=== PATIENT | female | born 1975 | race Caucasian/White ===

== ENCOUNTER 2018-07-31 17:52 | Emergency (ER) | payer MEDICAID ==
[~2018-07-31] VITALS: Ht 148.6 cm; Wt 54.5 kg
[2018-07-31 18:07] VITALS: Ht 148.6 cm; Wt 54.5 kg
[2018-07-31] MEDS ORDERED: LOVASTATIN20 MG PO (18:09)
[2018-07-31 18:25] LABS: BASOPHILS 0.1 % (0-2); EOSINOPHILS 1.3 % (0-7); HEMATOCRIT 42.2 % (36.0-48.0); HEMOGLOBIN 14.8 g/dL (12-16); IMMATURE GRANULOCYTES 0.2 % (0-5); LYMPHOCYTES 26.5 % (15-50); MCH 32.8 pg (26.0-34.0); MCHC 35.1 g/dL (31.0-37.0); MCV 93.6 fL (80.0-100.0); MEAN PLATELET VOLUME 10.6 fL (7.4-10.4); MONOCYTES 5.7 % (2-11); NEUTROPHILS 66.2 % (40-80); PLATELET COUNT 198 10x3/uL (130-400); RBC 4.51 10x6/uL (4.00-5.40); RDW 12.8 % (11.5-14.5); WBC 11.3 10x3/uL (4.8-10.8)
[2018-07-31 18:31] LABS: INR 0.97 (0.85-1.17); PROTIME 12.4 SECONDS (11.6-15.0)
[2018-07-31 18:32] LABS: APTT 27.8 SECONDS (22.8-39.4)
[2018-07-31 18:37] LABS: ALBUMIN 3.4 g/dL (3.4-5.0); ALKALINE PHOSPHATASE 63 U/L (46-116); ALT (SGPT) 9 U/L (10-68); BILIRUBIN - TOTAL 0.26 mg/dL (0.2-1.3); CALC OSMOLALITY 279 mosm/kg (275-300); CALCIUM 8.5 mg/dL (8.5-10.1); CARBON DIOXIDE 21.2 mmol/L (21.0-32.0); CHLORIDE - SERUM 106 mmol/L (98-107); CREATININE - SERUM 0.9 mg/dL (0.6-1.3); GLUCOSE 104 mg/dL (74-106); POTASSIUM - SERUM 3.6 mmol/L (3.5-5.1); PROTEIN - SERUM 7.1 g/dL (6.4-8.2); SODIUM 139 mmol/L (136-145); UREA NITROGEN 17 mg/dL (7-18); eGFR NON AFRICAN AMERICAN 73 mL/min (90-120)
[2018-07-31 18:48] LABS: CKMB 0.2 U/L (0.0-3.6); CREATINE KINASE 57 UL (21-215); MAGNESIUM - SERUM 2.2 mg/dL (1.8-2.4)
[2018-07-31 18:51] LABS: TROPONIN-I < 0.017 ng/mL (0.000-0.060)
[2018-07-31] MEDS ORDERED: METOPROLOL TART25 MG PO (19:31)
[2018-07-31 20:25] VITALS: BP 104/63
== END 2018-07-31 20:15 | disposition home or self-care (01) ==
LOC: D.ER 17:52
PROVIDERS: Family Medicine
DX: I47.1 Supraventricular tachycardia (principal)

== ENCOUNTER 2018-08-18 08:20 | Emergency (ER) | payer MEDICAID ==
[~2018-08-18 08:20] MED LIST: LOVASTATIN20 MG PO; METOPROLOL TART25 MG PO
[2018-08-18 08:31] VITALS: BMI 24.7
[2018-08-18] MEDS ORDERED: RYTHMOL 225 MG225 MG PO (08:48)
[2018-08-18 09:04] LABS: BASOPHILS 0.1 % (0-2); EOSINOPHILS 1.9 % (0-7); HEMATOCRIT 40.9 % (36.0-48.0); HEMOGLOBIN 14.4 g/dL (12-16); IMMATURE GRANULOCYTES 0.1 % (0-5); LYMPHOCYTES 37.6 % (15-50); MCH 33.2 pg (26.0-34.0); MCHC 35.2 g/dL (31.0-37.0); MCV 94.2 fL (80.0-100.0); MEAN PLATELET VOLUME 10.5 fL (7.4-10.4); MONOCYTES 7.2 % (2-11); NEUTROPHILS 53.1 % (40-80); PLATELET COUNT 186 10x3/uL (130-400); RBC 4.34 10x6/uL (4.00-5.40); RDW 13.2 % (11.5-14.5); WBC 7.4 10x3/uL (4.8-10.8)
[2018-08-18 09:25] LABS: APTT 28.4 SECONDS (22.8-39.4); PROTIME 12.7 SECONDS (11.6-15.0)
[2018-08-18 09:28] LABS: ALBUMIN 3.4 g/dL (3.4-5.0); ALKALINE PHOSPHATASE 60 U/L (46-116); ALT (SGPT) 9 U/L (10-68); BILIRUBIN - TOTAL 0.42 mg/dL (0.2-1.3); CALC OSMOLALITY 277 mosm/kg (275-300); CARBON DIOXIDE 24.9 mmol/L (21.0-32.0); CHLORIDE - SERUM 105 mmol/L (98-107); CREATININE - SERUM 0.8 mg/dL (0.6-1.3); GLUCOSE 90 mg/dL (74-106); SODIUM 139 mmol/L (136-145); UREA NITROGEN 12 mg/dL (7-18); eGFR NON AFRICAN AMERICAN 84 mL/min (90-120)
[2018-08-18 09:30] LABS: POTASSIUM - SERUM 4.3 mmol/L (3.5-5.1)
[2018-08-18 09:32] LABS: CKMB 0.8 U/L (0.0-3.6); CREATINE KINASE 74 UL (21-215); MAGNESIUM - SERUM 2.4 mg/dL (1.8-2.4); TROPONIN-I < 0.017 ng/mL (0.000-0.060)
[2018-08-18] MEDS ORDERED: TENORMIN25 MG PO (10:05)
[2018-08-18 10:15] VITALS: BP 132/80
== END 2018-08-18 10:15 | disposition home or self-care (01) ==
LOC: D.ER 08:20
PROVIDERS: Emergency Medicine
DX: R51 Headache (principal); I10 Essential (primary) hypertension

== ENCOUNTER 2018-09-17 01:27 | Emergency (ER) | payer MEDICAID ==
[~2018-09-17] VITALS: Ht 148.6 cm; Wt 53.2 kg
[~2018-09-17 01:27] MED LIST changes: +RYTHMOL 225 MG225 MG PO; +TENORMIN25 MG PO
[2018-09-17 01:29] VITALS: Ht 148.6 cm; Wt 53.2 kg
[2018-09-17] MEDS ORDERED: PINDOLOL10 MG PO (01:32)
[2018-09-17] MEDS ORDERED: LIPITOR80 MG PO (01:32)
[2018-09-17] MEDS ORDERED: HYDROCODON-ACE1 EAC7 PO (03:10)
[2018-09-17 03:30] VITALS: BP 128/80
== END 2018-09-17 03:30 | disposition home or self-care (01) ==
LOC: D.ER 01:27
DX: S00.83XA Contusion of other part of head, initial encounter (principal); W18.30XA Fall on same level, unspecified, initial encounter; Y93.89 Activity, other specified; Y92.019 Unspecified place in single-family (private) house as the place of occurrence of the external cause